=== PATIENT | male | born 1985 | race Caucasian/White ===

== ENCOUNTER 2017-06-22 00:52 | Emergency (ER) | END 2017-06-22 04:03 | disposition home or self-care (01) ==

== ENCOUNTER 2018-04-09 00:48 | Emergency (ER) | payer OTHER ==
[~2018-04-09] VITALS: Ht 185.4 cm; Wt 93.2 kg
[~2018-04-09 00:48] MED LIST: ALBU18HF INHALATION; ALBU2.5V3 NEB; CETI10CA PO; PRED20TA PO
[2018-04-09 00:53] VITALS: BP 132/76; Ht 185.4 cm; Wt 93.2 kg
[2018-04-09] MEDS ORDERED: ALBUTEROL 0.083% (NEB) 2.5 MG/3 ML AMP HHN STA (01:19)
--- NOTE | 2018-04-09 01:19 | ERD ---
ER Documentation Chief Complaint Chief Complaint ASTHMA EXACERBATION X'S 2 HOURS HPI This is a 33-year-old male who was brought in by ambulance to the emergency department with complaints of wheezing, asthma attack 2 hours prior to arrival here in emergency department. Stated that his inhaler is not working. Denies headache, head injury, loss of consciousness, dizziness, neck pain, neck stiffness, throat pain, difficulty swallowing, difficulty breathing lying flat, shoulder pain, chest pain, back pain, abdominal pain, nausea, vomiting, constipation, diarrhea, urinary symptoms, loss of bowel and bladder control, trauma, injury, falls, difficulty walking due to pain, numbness or tingling sens ation, calf pain, recent travel, recent major surgery in the last 3 weeks, calf pain, recent long travel, recent exposure to any illness, recent antibiotic use in the last 3 months, fever, chills, seizures. Past medical history: Asthma. Surgical history: Denies. Social: Denies smoking, use of alcoholic beverages, use of illegal drugs. ROS All systems reviewed and are negative except as per history of present illness. Medications Home Meds Active Scripts Loratadine (Loratadine) 10 Mg Capsule, 10 MG PO DAILY, #30 CAP Prov:KYLER LOBO F 04/09/18 Benzonatate* (Tessalon Perle*) 100 Mg Capsule, 100 MG PO Q8H PRN for COUGH, #14 CAP Prov:PASILAKYLER JIM F 04/09/18 Albuterol Sulfate* (Proair HFA*) 8.5 Gm Hfa.aer.ad, 2 PUFF INH Q4H PRN for WHEEZING AND SOB, #1 INHALER Prov:KYLER LOBO F 04/09/18 Prednisone* (Prednisone*) 20 Mg Tab, 40 MG PO DAILY for 4 Days, TAB Prov:KOFI LOBOAR F 04/09/18 Albuterol Sulfate* (Albuterol Sulfate* Neb) 0.083%-3 Ml Neb, 2.5 MG NEB Q4 PRN for SHORTNESS OF BREATH, #30 EA Prov:BUFFY ARCOS PA-C 06/22/17 Prednisone* (Prednisone*) 20 Mg Tab, 40 MG PO DAILY for 4 Days, TAB Prov:BUFFY ARCOS PA-C 06/22/17 Albuterol Sulfate* (Ventolin HFA*) 18 Gm Hfa.aer.ad, 2 PUFF INHALATION Q4H, #1 INHALER Prov:ISRRAELBUFFY Rodriguez PA-C 06/22/17 Cetirizine Hcl* (Zyrtec*) 10 Mg Capsule, 10 MG PO DAILY, #14 TAB.CHEW Prov:ISRRAELBUFFY Rodriguez PA-C 06/22/17 Allergies Allergies: Coded Allergies: No Known Drug Allergies (Verified Allergy, Unknown, 04/09/18) PMhx/Soc Hx Respiratory Disorders: Yes (asthma) Hx Alcohol Use: No Hx Substance Use: No Hx Tobacco Use: No Physical Exam Vitals Physical Exam Const: No acute distress Head: Atraumatic Eyes: Normal Conjunctiva ENT: Normal External Ears, Nose and Mouth. Throat/mouth: Uvula is midline and nondisplaced. Tonsils are +1 bilaterally without redness without exudates. Tolerating secretions. Patent airway. Speaks full and clear sentences. No tripoding. No stridor. Neck: Full range of motion. No meningismus. No nuchal rigidity. No signs of meningeal irritation. Resp: No accessory muscle use in breathing. No tripoding. Wheezing bilate rally. Cardio: Regular rate and rhythm, no murmurs Abd: Soft, non tender, non distended. Normal bowel sounds Skin: No petechiae or rashes. Color appears normal for ethnicity. No paleness. No skin tenting. No signs of dehydration. Back: No midline or flank tenderness Ext: No cyanosis, or edema Neur: Awake and alert. No neurological deficit. Psych: Normal Mood and Affect Results 24 hrs Current Medications Medications Dose Sig/Karime Start Time Status Last (Trade) Ordered Route PRN Stop Time Admin Dose Reason Admin 10 mg ONCE ONCE 04/09/18 DC 04/09/18 Dexamethasone IM 01:30 02:10 (Decadron) 04/09/18 01:31 Albuterol 5 mg ONCE STAT 04/09/18 DC 04/09/18 (Proventil HHN 01:19 01:35 0.083% (Neb)) 04/09/18 01:21 Ipratropium 0.5 mg ONCE ONCE 04/09/18 DC 04/09/18 [place] [facility] 01:30 01:35 (Atrovent 04/09/18 0.02% 01:31 (Neb)) Procedures/MDM Diagnostic tests: Clinical exam. Treatment: Decadron IM. Albuterol and Atrovent breathing treatment. Re-evaluation: Respirations even and unlabored. No accessory muscle use in appi athing. Stated that he feels much better this time. No tripoding. Stated that he is comfortable going home. Differential diagnosis I have low suspicion for sepsis, airway obstruction, status asthmaticus, bronchospasm, pneumonia, pneumothorax, hemothorax, severe dehydration. Final diagnosis: Asthma exacerbation. Prescription: Pro-air. Prednisone. Tessalon Perles. Follow-up with PCP in the next 24-48 hours. Come back here in the emergency department for any new symptoms or any worsening symptoms. All questions and concerns were answered. Patient and family members verbalized understanding and agreed with plan of care. Hemodynamically stable on discharge. Departure Diagnosis: Primary Impression: Asthma exacerbation Condition: Stable Additional Instructions: Follow-up with PCP in the next 24-48 hours. Come back here in the emergency department for any new symptoms or any worsening symptoms. KYLER LOBO Apr 09, 2018 01:19
[2018-04-09] MEDS ORDERED: IPRATROPIUM (NEB) 0.5 MG/2.5 ML AMP HHN ONE (01:30)
[2018-04-09] MEDS ORDERED: DEXAMETHASONE 10 MG/ML 1 ML INJ IM ONE (01:30)
[2018-04-09] MEDS ORDERED: LORA10CA9 PO (01:46)
[2018-04-09] MEDS ORDERED: ALBU8.5H8 INH (01:46)
[2018-04-09] MEDS ORDERED: PRED20TA PO (01:46)
[2018-04-09] MEDS ORDERED: BENZ-6 PO (01:46)
[2018-04-09 02:47] VITALS: PULSE 99; RESP 24
== END 2018-04-09 02:20 | disposition home or self-care (01) ==
LOC: FTE 00:48
DX: J45.901 Unspecified asthma with (acute) exacerbation (principal)
CPT/HCPCS: 94664; 96372; J1100; Z7502; Z7610

== ENCOUNTER 2018-05-19 20:45 | Emergency (ER) | payer OTHER ==
[~2018-05-19] VITALS: Ht 185.4 cm; Wt 83.4 kg
[~2018-05-19 20:45] MED LIST changes: +ALBU8.5H8 INH; +BENZ-6 PO; +LORA10CA9 PO
[2018-05-19 20:59] VITALS: BP 118/62; PULSE 86; RESP 18; Ht 185.4 cm; Wt 83.4 kg
[2018-05-19] MEDS ORDERED: IBUPROFEN 800 MG TAB PO ONE (22:30)
[2018-05-19] MEDS ORDERED: IBUP-1542 PO (23:26)
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
[2018-05-19] MEDS ORDERED: ALBU18HF INHALATION (23:41)
== END 2018-05-19 23:30 | disposition home or self-care (01) ==
LOC: FTE 20:45
DX: S20.212A Contusion of left front wall of thorax, initial encounter (principal); J45.909 Unspecified asthma, uncomplicated; F17.210 Nicotine dependence, cigarettes, uncomplicated; R40.2412 Glasgow coma scale score 13-15, at arrival to emergency department; Y04.8XXA Assault by other bodily force, initial encounter
CPT/HCPCS: 71100; Z7610